=== PATIENT | female | born 1975 | race Caucasian/White ===

== ENCOUNTER 2020-07-23 08:13 | Outpatient (CLI) | payer OTHER, SELFPAY ==
--- NOTE | ~2020-07-23 | MM_ITS ---
EXAMINATION: MM screening [facility] BI w niecy HISTORY: Screening mammogram TECHNIQUE: Craniocaudal and mediolateral oblique 3-D tomosynthesis images were obtained and synthetic 2-D images were generated. CAD analysis was submitted and interpreted. COMPARISON: 06/27/2019, 06/21/2018, 05/17/2017 bilateral digital screening mammogram examinations BREAST PARENCHYMAL COMPOSITION: The breasts are heterogeneously dense, which may obscure small masses . FINDINGS: Suggestion of some subtle microcalcifications in the posterior inner left breast on cc view . Diagnostic left mammogram with magnification views is recommended. Otherwise there is no evidence of suspicious mass, calcification, or architectural distortion to sugg est malignancy in either breast. There has been no suspicious interval change. IMPRESSION: 1. Suggestion of subtle microcalcifications in the posterior inner left breast on cc view 2. Diagnostic left mammogram with magnification views is recommended BI-RADS Category 0: Incomplete: Needs additional imaging evaluation. Reviewed, dictated and finalized at location A.
== END 2020-07-23 08:14 | disposition home or self-care (01) ==
LOC: ANHIMG 08:17
PROVIDERS: PCP Obstetrics & Gynecology; Visit Provider Obstetrics & Gynecology
DX: Z12.31 Encounter for screening mammogram for malignant neoplasm of breast (principal); R92.8 Other abnormal and inconclusive findings on diagnostic imaging of breast
CPT/HCPCS: 77063; 77067

== ENCOUNTER 2020-08-19 13:15 | Outpatient (CLI) | payer OTHER, SELFPAY ==
--- NOTE | ~2020-08-19 | MM_ITS ---
EXAMINATION: MM diagnostic mammo unilat LT HISTORY: Indeterminate left breast calcifications on screening mammogram TECHNIQUE: Additional images of the left breast were performed and synthetic 2-D images were generate d. CAD analysis was submitted and interpreted. COMPARISON: 07/23/2020, 06/27/2019,06/21/2018 FINDINGS: No definite group of calcifications identified with magnification views of the left breast. There is no suspicious mass or architectural distortion. IMPRESSION: 1. No mammographic evidence of malignancy or evidence of grouped left breast calcification. 2. Recommend routine screening mammography in one year. BI-RADS Category 1: Negative Reviewed, dictated and finalized at location A. 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 No mammographic evidence of malignancy or evidence of grouped left breast ca lcification. 2. Recommend routine screening mammography in one year. BI-RADS Category 1: Negative
== END 2020-08-19 13:16 | disposition home or self-care (01) ==
LOC: ANHIMG 13:16
PROVIDERS: PCP Obstetrics & Gynecology; Visit Provider Obstetrics & Gynecology
DX: R92.8 Other abnormal and inconclusive findings on diagnostic imaging of breast (principal)
CPT/HCPCS: 77065

== ENCOUNTER 2021-08-05 07:16 | Outpatient (CLI) | payer OTHER, SELFPAY ==
--- NOTE | ~2021-08-05 | MM_ITS ---
EXAMINATION: MM screening [facility] BI w niecy HISTORY: Screening TECHNIQUE: Craniocaudal and mediolateral oblique 3-D tomosynthesis images were obtained and synthetic 2-D images were generated. CAD analysis was submitted and interpreted. COMPARISON: Comparison to multiple prior studies sequentially, with oldest reviewed study dated 05/17. BREAST PARENCHYMAL COMPOSITION: The breasts are heterogeneously dense, which may obscure small masses . FINDINGS: There is no evidence of suspicious mass, calcification, or architectural distortion to sugg est malignancy in either breast. There has been no suspicious interval change. IMPRESSION: 1. No mammographic evidence of malignancy. 2. Recommend routine screening mammography in one year. BI-RADS Category 1: Negative Reviewed, dictated and finalized at location A.
== END 2021-08-05 07:17 | disposition home or self-care (01) ==
PROVIDERS: Visit Provider Obstetrics & Gynecology
DX: Z12.31 Encounter for screening mammogram for malignant neoplasm of breast (principal)
CPT/HCPCS: 77063; 77067

== ENCOUNTER → 2022-08-27 10:28 | Outpatient (CLI) | payer OTHER, SELFPAY ==
--- NOTE | ~2022-08-27 | MM_ITS ---
EXAMINATION: MM screening [facility] BI w niecy HISTORY: Screening mammogram TECHNIQUE: Craniocaudal and mediolateral oblique 3-D tomosynthesis images were obtained and synthetic 2-D images were generated. CAD analysis was submitted and interpreted. COMPARISON: No prior mammogram is available for comparison at this institution. BREAST PARENCHYMAL COMPOSITION: The breasts are heterogeneously dense, which may obscure small masses . FINDINGS: There is no evidence of suspicious mass, calcification, or architectural distortion to sugg est malignancy in either breast. There has been no suspicious interval change. IMPRESSION: 1. No mammographic evidence of malignancy. 2. Recommend routine screening mammography in one year. BI-RADS Category 1: Negative Reviewed, dictated and finalized at location A. 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
== END ==
PROVIDERS: Visit Provider Obstetrics & Gynecology
DX: Z12.31 Encounter for screening mammogram for malignant neoplasm of breast (principal)
CPT/HCPCS: 77063; 77067

== ENCOUNTER → 2023-11-29 15:54 | Outpatient (CLI) | payer OTHER, SELFPAY ==
--- NOTE | ~2023-11-29 | MM_ITS ---
EXAMINATION: MM screening [facility] BI w niecy HISTORY: Screening TECHNIQUE: Craniocaudal and mediolateral oblique 3-D tomosynthesis images were obtained and synthetic 2-D images were generated. CAD analysis was submitted and interpreted. COMPARISON: Comparison to multiple prior studies sequentially, with oldest reviewed study dated 06/21. BREAST PARENCHYMAL COMPOSITION: The breasts are heterogeneously dense, which may obscure small masses . FINDINGS: There is no evidence of suspicious mass, calcification, or architectural distortion to sugg est malignancy in either breast. There has been no suspicious interval change. IMPRESSION: 1. No mammographic evidence of malignancy. 2. Recommend routine screening mammography in one year. BI-RADS Category 1: Negative Reviewed, dictated and finalized at location A. 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
== END ==
PROVIDERS: PCP Obstetrics & Gynecology; Visit Provider Obstetrics & Gynecology
DX: Z12.31 Encounter for screening mammogram for malignant neoplasm of breast (principal)
CPT/HCPCS: 77063; 77067

== ENCOUNTER 2025-01-19 14:29 | Outpatient (CLI) | payer OTHER, SELFPAY ==
--- NOTE | ~2025-01-19 | MM_ITS ---
EXAMINATION: MM screening [facility] BI w niecy HISTORY: Screening TECHNIQUE: Craniocaudal and mediolateral oblique 3-D tomosynthesis images were obtained and synthetic 2-D images were generated. CAD analysis was submitted and interpreted. COMPARISON: Comparison to multiple prior studies sequentially, with oldest reviewed study dated 06/27. BREAST PARENCHYMAL COMPOSITION: Not dense: There are scattered areas of fibroglandular density. FINDINGS: There is a developing focal asymmetry in the lower outer quadrant of the left breast, anter ior third. The right breast is stable without evidence for malignancy. IMPRESSION: 1. Developing left breast asymmetry. 2. Additional mammographic views and possible breast ultrasound are recommended. BI-RADS Category 0: Incomplete: Needs additional imaging evaluation. Reviewed, dictated and finalized at location B. IMPRESSION: 1. Developing left breast asymmetry. 2. Additional mammographic views and possible breast ultrasound are recommended . BI-RADS Category 0: Incomplete: Needs additional imaging evaluation.
== END 2025-01-19 14:30 | disposition home or self-care (01) ==
LOC: MICIMG 14:30
PROVIDERS: PCP Obstetrics & Gynecology; Visit Provider Obstetrics & Gynecology
DX: Z12.31 Encounter for screening mammogram for malignant neoplasm of breast (principal); R92.8 Other abnormal and inconclusive findings on diagnostic imaging of breast
CPT/HCPCS: 77063; 77067

== ENCOUNTER 2025-02-10 09:21 | Outpatient (CLI) | payer OTHER, SELFPAY ==
--- NOTE | ~2025-02-10 | MMUS_ITS ---
EXAMINATION: MM diagnostic marg[facility] LT w niecy, US breast LT complete HISTORY: Follow-up left breast asymmetry TECHNIQUE: Additional 3-D tomosynthesis images of the left breast were performed and synthetic 2-D im ages were generated. CAD analysis was submitted and interpreted. High resolution complete left breast ultrasound was performed. COMPARISON: Comparison to multiple prior studies sequentially, with oldest reviewed study dated 07/07. BREAST PARENCHYMAL COMPOSITION: Not dense: There are scattered areas of fibroglandular density. FINDINGS: MAMMOGRAPHIC FINDINGS: There are no discrete masses, calcifications or architectural distortion in the left breast to sugges t malignancy. Asymmetries in the left breast are less apparent with spot compression and mediolateral views. ULTRASOUND: Limited left breast ultrasound: At 12:00, 1 cm from the nipple there is a 5 mm cyst. At 12:00 near th e nipple there is a 4 mm cyst. There mildly prominent ducts at 12:00 near the nipple. At 9:00, 1 cm f rom the nipple there is a 5 mm cyst. No suspicious masses to suggest malignancy. IMPRESSION: 1. No evidence for malignancy in the left breast. Benign findings. 2. Routine yearly screening mammogram and regular clinical breast examination are recommended. BI-RADS Category 2: Benign finding(s). Reviewed, dictated and finalized at location A. IMPRESSION: 1. No evidence for malignancy in the left breast. Benign findings. 2. Routine yearly screening mammogram and regular clinical breast examination a re recommended. BI-RADS Category 2: Benign finding(s).
== END 2025-02-10 09:22 | disposition home or self-care (01) ==
LOC: MICIMG 09:22
PROVIDERS: PCP Obstetrics & Gynecology; Visit Provider Obstetrics & Gynecology
DX: R92.8 Other abnormal and inconclusive findings on diagnostic imaging of breast (principal)
CPT/HCPCS: 76641; 77061; 77065; G0279